=== PATIENT | female | born 1995 | race Two or more races ===

== ENCOUNTER 2018-09-15 15:13 | Inpatient (IN) | payer OTHER ==
[~2018-09-15] VITALS: Ht 167.6 cm; Wt 73.5 kg
[2018-10-21] MEDS ORDERED: FOLIC ACID0.4 MG PO (07:55)
[2018-10-21] MEDS ORDERED: PNEU16DI2 (07:55)
[2018-10-21] MEDS ORDERED: PRENATAL TABLE1 EAC1 PO (07:55)
== END 2018-10-24 15:19 | disposition home or self-care (01) | DRG 807 ==
LOC: EDBD 09-26 12:00 → OB/GYN 09-26 12:00 → EDBD 10-20 12:00 → OB/GYN 10-20 12:00 → LDR 10-21 06:25 → OB/GYN 10-21 20:15
PROVIDERS: ADMIT Obstetrics & Gynecology
PROC: 10E0XZZ Delivery of Products of Conception, External Approach (ICD-10-PCS; principal; 2018-10-21)
PROC: 0KQM0ZZ Repair Perineum Muscle, Open Approach (ICD-10-PCS; 2018-10-21)
PROC: 3E033VJ Introduction of Other Hormone into Peripheral Vein, Percutaneous Approach (ICD-10-PCS; 2018-10-21)
PROC: 4A1HXCZ Monitoring of Products of Conception, Cardiac Rate, External Approach (ICD-10-PCS; 2018-10-21)
DX: O70.1 Second degree perineal laceration during delivery (principal); Z37.0 Single live birth; Z3A.40 40 weeks gestation of pregnancy; Z22.330 Carrier of Group B streptococcus